=== PATIENT | female | born 1975 | race African-American/Black ===

== ENCOUNTER 2018-04-25 11:13 | Inpatient (IN) | payer MEDICAID, OTHER ==
[~2018-04-25 11:13] MED LIST: DEXAMETHASONE SOD PHOS 4 MG/ML VIAL ONE; FENTANYL CITRATE/PF 250 MCG/5 ML INJ. ONE; GLYCOPYRROLATE 0.2 MG/1 ML 1 ML ONE; KETOROLAC TROMETHAMINE 30 MG/1ML VIAL ONE; LABETALOL HCL 20 MG/4 ML SYRINGE ONE; LACTATED RINGERS 1,000 ML IV.SOLN IV ONE; LIDOCAINE HCL 2% PF 100MG/5ML VIAL IJ ONE; ONDANSETRON HCL/PF 4 MG/ 2ML VIAL ONE; PROPOFOL 200 MG/20 ML VIAL IV ONE; ROCURONIUM BROMIDE 10 MG/ML 5ML VIAL ONE; SEVOFLURANE 250 ML LIQUID IH ONE; SUCCINYLCHOLINE CHLORIDE 20 MG/ML 10ML VIAL ONE; SUGAMMADEX SODIUM 200 MG/2 ML VIAL IV ONE; ceFAZolin SODIUM 1 GM VIAL ONE
[2018-04-25] MEDS ORDERED: ONDANSETRON HCL/PF 4 MG/ 2ML VIAL IVP PRN (17:00)
[2018-04-25] MEDS ORDERED: diphenhydrAMINE HCL 50 MG/ML VIAL IVP PRN (17:00)
[2018-04-25] MEDS ORDERED: LEVALBUTEROL HCL 1.25 MG/3 ML AMPUL.NEB NEB PRN (17:00)
[2018-04-25] MEDS ORDERED: MORPHINE SULFATE 4 MG/ML PREFILLED SYR IVP PRN (17:00)
[2018-04-25] MEDS ORDERED: PROMETHAZINE HCL 25 MG in 0.9 % SODIUM CHLORIDE 50 ML IV PRN (17:00)
--- NOTE | 2018-04-25 17:28 | History and Physical Report ---
History of Present Illnes - History of Present Illness Reason for Visit: morbid obesity S/P gastric sleeve History of Present Illness: 42yo female with a history morbid, with BMI of 56.6.Patient has tried to lose weight but has been unsuccessful in maintaining any weight loss. Patient has comorbidities of HTN, OA, GIOVANNA. Patient was seen and evaluated for bariatric surgery. It was felt that she would benefit for gastric sleeve surgery. Patient had that procedure done royal. She did not have any intraoperative complications. On arrival to the floor her VS were stable. Patient did have some vomiting with hematemisis. - Past Medical History Cardiac: HTN, Other (heart mumur) Pulmonary: Sleep Apnea (obstructive) Heme/Onc: Other (hepatomegally) Psych: Anxiety, Depression Musculoskeletal: Osteoarthritis (back pain) Rheumatologic: Fibromyalgia Renal/: Other (stress incontinence) - Past Surgical History Past Surgical History: Other (? bladder sling) - Past Family History Mother Family History: DM, Hypertension, Other (hepatitis ) - Past Social History Smoke: No Alcohol: Occassional Drugs: None Lives: With Family Domestic Violence: Negative - Health Maintenance Health Maintenance: denies: Influenza Vaccine, Pneumococcal Vaccine Influenza Vaccine: No Pneumonia Vaccine: No Resuscitation Status: Resusciation Status Resuscitation Status Full Code - Unable to Obtain History Unable to Obtain: No Review of Systems - Review of Systems Constitutional: Weakness. negative: Fever, Chills, Sweats Eyes: negative: vision change ENT: negative: Ear Pain, Ear Discharge, Nose Pain, Nose Discharge, Nose Congestion, Mouth Pain Respiratory: negative: Cough, Dry, Shortness of Breath, Wheezing Cardiovascular: negative: Chest Pain, Palpitations, Edema, Light Headedness Gastrointestinal: Nausea, Vomiting (mild hematemisis), Abdominal Pain. negative: Diarrhea, Constipation, Melena, Hematochezia Genitourinary: Incontinence. negative: Dysuria, Frequency Musculoskeletal: Back Pain. negative: Neck Pain, Shoulder Pain Skin: negative: Rash Neurological: negative: Weakness, Change in Speech, Confusion - Medications/Allergies Allergies/Adverse Reactions: Allergies Allergy/AdvReac Type Severity Reaction Status Date / Time No Known Allergies Allergy Verified 04/25/18 16:54 Home Medications: Home Medications Cholecalciferol [Vitamin D-3] 1,000 unit PO DAILY 04/25/18 Ferrous Sulfate [Iron] 325 mg PO DAILY 04/25/18 Ibuprofen [Advil] 400 mg PO BID 04/25/18 Metoprolol Succinate [Toprol Xl] 50 mg PO DAILY 04/25/18 Solifenacin Succinate [Vesicare] mg PO HS 04/25/18 Current Inpatient Medications: Current Inpatient Medications Cefazolin Sodium (Ancef) 1 gm IV Q8 [facility] Stop: 04/26/18 05:01 Diphenhydramine HCl (Benadryl) 25 mg IVP Q6H PRN PRN Reason: Sleeping and Itching Stop: 04/29/18 16:59 Enoxaparin Sodium (Lovenox) 40 mg SQ QD [facility] Stop: 05/09/18 16:59 Famotidine (Pepcid) 20 mg IVP BID [facility] Stop: 04/29/18 20:59 Sodium Chloride (Normal Saline) 1,000 mls @ 150 mls/hr IV Q8H [facility] Promethazine HCl 25 mg/ Sodium (Chloride) 51 mls @ 600 mls/hr IV Q6 PRN PRN Reason: Nausea / Vomiting Stop: 04/29/18 16:59 Ketorolac Tromethamine (Toradol) 30 mg IVP Q6 PRN PRN Reason: For Mild Pain Stop: 04/29/18 16:59 Levalbuterol HCl (Xopenex) 1.25 mg NEB Q4 PRN PRN Reason: SOA, Dyspnea, or Wheezing Stop: 04/29/18 16:59 Morphine Sulfate (Depodur) 2 mg IVP Q2 PRN PRN Reason: MODERATE PAIN Stop: 04/29/18 16:59 Morphine Sulfate (Depodur) 4 mg IVP Q2 PRN PRN Reason: Severe Pain Stop: 04/29/18 16:59 Ondansetron HCl (Zofran 4 Mg/2 Ml) 4 mg IVP Q6H PRN PRN Reason: Nausea / Vomiting Stop: 04/29/18 16:59 Exam - Exam General: Alert, Oriented to Person, Oriented to Place, Oriented to Time, Cooperative HEENT: Atraumatic, PERRLA, EOMI, Mouth Mucous membr. moist/[place], Nose Mucous membr. moist/[place] Neck: Normal Range of Motion Lungs: Clear to auscultation, Normal air movement, Speaks full Sentences Cardiovascular: Regular rate, Normal S1, Normal S2, No murmurs Abdomen: Soft, No hepatospenomegaly, No masses, Other (mild diffuse tenderness noted), Decreased Bowel Sounds Integumentary: Normal, [place], Warm, Dry Extremities: No clubbing, No cyanosis, No edema, Normal pulses, No tenderness/swelling Neurological: Normal gait, Normal speech, Strength Equal Bilat, Normal tone, Sensation intact, Cranial nerves 3-12 NL, Reflexes 2+ Psych/Mental Status: Mental status NL, Mood NL, Appropriate Affect, Intact Judgment Assessment/Plan - Assessment/Plan (1) Morbid obesity with BMI of 50.0-59.9, adult Status: Acute Current Visit: Yes Assessment: s/p Gastric sleeve. Patient was advised of the importance to -use incentive spirometry at least 1-2 times per hour. -Ice chips to start oral hydration to advance to clear liquids as directed. -to ambulate frequently Post op orders done Will watch for GI bleeding since she has had some hematemisis (2) Essential hypertension Status: Acute Current Visit: Yes Assessment: Patient states that her BP is usually 150/80-90. (3) Depressive disorder Status: Acute Current Visit: Yes (4) Anxiety Status: Acute Current Visit: Yes (5) Fibromyalgia Status: Acute Current Visit: Yes (6) Generalized osteoarthritis Status: Acute Current Visit: Yes (7) Obstructive sleep apnea Status: Acute Current Visit: Yes (8) Urinary, incontinence, stress female Status: Acute Current Visit: Yes VTE Assessment - RISK FACTOR SCORE VTE RISK FACTOR SCORES: AGE 40-60 YEARS, OBESITY, MINOR SURGERY/ ANESTHESIA TIME < 1 HOUR - RISK VTE HIGH RISK: SCORE OF 3-4 (RISK PROXIMAL DVT 4-8%) PROPHYLAXIS NEEDED
[2018-04-25] MEDS: 0.9 % SODIUM CHLORIDE 1,000 ML IV SCH (17:36)
[2018-04-25] MEDS: ENOXAPARIN SODIUM 40 MG/0.4 ML DISP.SYRIN SQ SCH (17:36)
[2018-04-25] MEDS: METOPROLOL SUCCINATE 50 MG PO SCH (17:42)
[2018-04-25 19:22] VITALS: BMI 54.7
[2018-04-25] MEDS: FAMOTIDINE 20 MG/2 ML VIAL IVP SCH (21:25)
[2018-04-25] MEDS: ceFAZolin SODIUM 1 GM VIAL IV SCH (22:09)
[2018-04-25] MEDS: MORPHINE SULFATE 4 MG/ML PREFILLED SYR IVP PRN (22:16)
[2018-04-26] MEDS: 0.9 % SODIUM CHLORIDE 1,000 ML IV SCH ×3 (01:00→19:01)
[2018-04-26] MEDS: ceFAZolin SODIUM 1 GM VIAL IV SCH (06:50)
[2018-04-26] MEDS: MORPHINE SULFATE 4 MG/ML PREFILLED SYR IVP PRN (07:24)
[2018-04-26] MEDS: METOPROLOL SUCCINATE 50 MG PO SCH (10:02)
[2018-04-26] MEDS: KETOROLAC TROMETHAMINE 30 MG/1ML VIAL IVP PRN ×2 (10:10→22:12)
[2018-04-26] MEDS: FAMOTIDINE 20 MG/2 ML VIAL IVP SCH ×2 (10:10→22:23)
--- NOTE | 2018-04-26 12:19 | Inpatient Progress Note ---
Subjective - Required Recertification Statement I anticipate X number of days because-include discharge plan: 1 - Review of Systems Events since last encounter: Laine is ambulating fairly well. She has some mildly bloody emesis, but that has resolved. She has no fever or chills. General: Denies: Chills, Night Sweats HEENT: Denies: Head Aches Pulmonary: Denies: Dyspnea, Cough Cardiovascular: Denies: Chest Pain, Palpitations Gastrointestinal: Nausea, Vomiting (much less), Abdominal Pain (mild at incision sites) Genitourinary: Denies: Dysuria, Frequency Musculoskeletal: Denies: Neck Pain, Shoulder Pain Neurological: Denies: Weakness, Numbness Objective - Exam Vitals and I&O: Vital Signs Temp 98.4 F 04/26/18 09:42 Pulse 80 04/26/18 09:42 Resp 16 04/26/18 09:42 BP 145/66 04/26/18 09:42 Pulse Ox 95 04/26/18 09:42 Intake & Output 04/25/18 04/26/18 04/26/18 23:59 11:59 23:59 Intake Total 940 2160 Output Total 610 500 Balance 330 1660 Weight 153.768 kg Intake: IV 820 1800 Left Forearm 300 Right Forearm 820 1500 Oral 120 360 Output: Urine 610 500 General: Alert, Oriented to Person, Oriented to Place, Oriented to Time, Cooperative, No acute distress HEENT: Atraumatic, PERRLA, EOMI Neck: Supple, No JVD Lungs: Clear to auscultation, Decreased Air Movement Cardiovascular: Regular rate Abdomen: Normal bowel sounds, Soft, No tenderness Extremities: No clubbing, No cyanosis, No edema Skin: Normal Neurological: Normal gait Psych/Mental Status: Mental status NL Assessment/Plan - Assessment/Plan (1) Morbid obesity with BMI of 50.0-59.9, adult Status: Acute Current Visit: Yes Assessment: S/P Gastric Sleeve, normal postoperative course Plan: Plan for d/c to home tomorrow (2) Essential hypertension Status: Acute Current Visit: Yes Assessment: Well controlled (3) Obstructive sleep apnea Status: Acute Current Visit: Yes Assessment: Continue CPAP
[2018-04-26] MEDS: METOPROLOL TARTRATE 25 MG TABLET PO SCH ×3 (12:56→22:10)
[2018-04-26] MEDS: ENOXAPARIN SODIUM 40 MG/0.4 ML DISP.SYRIN SQ SCH (17:16)
[2018-04-26] MEDS: HYDROCODON-ACETAMIN 7.5-325/15ML SOLN UD CUP PO PRN (17:39)
[2018-04-27] MEDS: 0.9 % SODIUM CHLORIDE 1,000 ML IV SCH ×2 (02:53→09:36)
[2018-04-27 09:29] VITALS: BP 126/64
[2018-04-27] MEDS: METOPROLOL TARTRATE 25 MG TABLET PO SCH (09:35)
[2018-04-27] MEDS: FAMOTIDINE 20 MG/2 ML VIAL IVP SCH (11:44)
[2018-04-27] MEDS: HYDROCODON-ACETAMIN 7.5-325/15ML SOLN UD CUP PO PRN (12:35)
--- NOTE | 2018-04-28 09:34 | Discharge Summary ---
DATE OF ADMISSION: April 25, 2018 DATE OF DISCHARGE: April 27, 2018 DIAGNOSES ON THIS HOSPITALIZATION: 1. Morbid obesity. 2. Depression. 3. Essential hypertension. 4. Fibromyalgia. PROCEDURES DONE DURING THIS HOSPITALIZATION: Gastric sleeve was performed by Dr. Sd Calabrese. SUMMARIZATION OF ADMISSION HISTORY AND PHYSICAL: This is a 42-year-old female who presented to Dr. Calabrese's office for an evaluation for bariatric surgery after having had multiple failed attempts at dietary control of her weight. She was felt to be a good candidate for a gastric sleeve, and as a result, she was scheduled for the same. HOSPITAL COURSE: She was admitted on April 25, 2018, and a gastric sleeve was performed by Dr. Calabrese. She had no postoperative complications. Her pain was pretty well controlled. She was discharged to home to follow up on May 01, 2018, at 1:30 p.m. in [place] at [facility]. Routine discharge teaching was given. She was sent home with a prescription for Phenergan syrup 6.25 mg per 5 mL, 10 mL p.o. every 6 hours p.r.n. nausea, as well as hydrocodone syrup 7.5 mg per 15 mL, 10 mL every 6 hours p.r.n., 250 mL. MTDD
== END 2018-04-27 11:30 | disposition home or self-care (01) | DRG 621 ==
LOC: OPSURG 11:13 → SOUTH 11:14 → UNDOADMIN 11:51 → SOUTH 16:52 → UNDOADMIN 16:52 → UNDODISIN 04-27 11:30
PROVIDERS: ADMIT Family Medicine; ATTEND Family Medicine
DX: E66.01 Morbid (severe) obesity due to excess calories (principal); Z68.43 Body mass index [BMI] 50.0-59.9, adult; I10 Essential (primary) hypertension; G47.33 Obstructive sleep apnea (adult) (pediatric); Z32.02 Encounter for pregnancy test, result negative
CPT/HCPCS: 43235; 81025; 99231; 99232; 99238; J0330; J0690; J1100; J1650; J1885; J2001; J2270; J2405; J2704; J3490; 43775; A9270-GY; J7030; J7120